=== PATIENT | male | born 1960 | race Asian ===

== ENCOUNTER 2018-03-07 13:25 | Inpatient (IN) | payer SELFPAY ==
[~2018-03-07] VITALS: Ht 172.7 cm; Wt 62.5 kg
[2018-03-07] VITALS (9 sets, daily range): BP systolic 102–128; BP diastolic 70–84; PULSE 67–80; RESP 16–28; TEMP 97.4–99; O2SAT 96–100
[2018-03-07] MEDS ORDERED: HEPARIN SODIUM - IV 10,000 UNITS/10 ML VIAL IV PUSH STA (13:32)
--- NOTE | 2018-03-07 13:39 | PD ---
HPI Chief Complaint: STEMI Alert Time Seen by Provider: 13:30 Travel History International Travel<30 days: No Contact w/Intl Traveler<30days: No Traveled to known affect area: No History of Present Illness HPI 57yo M with no PMH presents to the ED with c/o midsternal chest pain radiating to left arm that started about an hour ago. Associated with sob and diaphoresis. Pt has never had this before. Does not have top frame fitter. Denies any fever, cough, n/v, abdominal pain, focal weakness or numbness. Pt was given aspirin and sublingual nitro x3 by EVAC. [facility] Social History Tobacco Use: Yes Allergies-Medications (Allergen,Severity, Reaction): Coded Allergies: No Known Allergies (Verified Allergy, Unknown, 03/07/18) Review of Systems Except as stated in HPI: all other systems reviewed are Neg Physical Exam Narrative GENERAL: 57yo M in moderate distress. SKIN: Diaphoretic. HEAD: Atraumatic. Normocephalic. EYES: Pupils equal and round. No scleral icterus. No injection or drainage. ENT: No nasal bleeding or discharge. Mucous membranes pink and moist. NECK: Trachea midline. No JVD. CARDIOVASCULAR: Regular rate and rhythm. No murmur appreciated. RESPIRATORY: No accessory muscle use. Clear to auscultation. Breath sounds equal bilaterally. GASTROINTESTINAL: Abdomen soft, non-tender, nondistended. MUSCULOSKELETAL: No obvious deformities. No clubbing. No cyanosis. No edema. NEUROLOGICAL: Awake and alert. No obvious cranial nerve deficits. Motor grossly within normal limits. Normal speech. PSYCHIATRIC: Appropriate mood and affect; insight and judgment normal. Data Data Last Documented VS Vital Signs Date Time Temp Pulse Resp B/P (MAP) Pulse Ox O2 Delivery O2 Flow Rate FiO2 03/07/18 13:54 128/84 (99) 03/07/18 13:34 76 15 100 Nasal Cannula 2.00 03/07/18 13:29 97.4 Orders Orders Troponin I (03/07/18 13:32) Ckmb (Isoenzyme) Profile (03/07/18 13:32) Complete Blood Count With Diff (03/07/18 13:32) I-Stat Profile (03/07/18 13:32) I-Stat Creatinine (03/07/18 13:32) Magnesium (Mg) (03/07/18 13:32) Prothrombin Time / Inr (Pt) (03/07/18 13:32) Act Partial Throm Time (Ptt) (03/07/18 13:32) Chest, Single Ap (03/07/18 13:32) Heparin Inj (Heparin Inj) (03/07/18 13:32) Cardiac Catheterization (03/07/18 ) Admit Order (Ed Use Only) (03/07/18 14:10) Midazolam Inj (Versed Inj) (03/07/18 14:12) CKMB (03/07/18 13:30) CKMB% (03/07/18 13:30) Labs Laboratory Tests Test 03/07/18 13:30 White Blood Count 11.7 TH/MM3 Red Blood Count 4.58 MIL/MM3 Hemoglobin 14.1 GM/DL Bedside Hemoglobin 13.9 G/DL Hematocrit 41.6 % Bedside Hematocrit 41.0 % Mean Corpuscular Volume 90.8 FL Mean Corpuscular Hemoglobin 30.8 PG Mean Corpuscular Hemoglobin Concent 33.9 % Red Cell Distribution Width 13.3 % Platelet Count 238 TH/MM3 Mean Platelet Volume 9.3 FL Neutrophils (%) (Auto) 46.7 % Lymphocytes (%) (Auto) 41.7 % Monocytes (%) (Auto) 8.2 % Eosinophils (%) (Auto) 2.3 % Basophils (%) (Auto) 1.1 % Neutrophils # (Auto) 5.5 TH/MM3 Lymphocytes # (Auto) 4.9 TH/MM3 Monocytes # (Auto) 1.0 TH/MM3 Eosinophils # (Auto) 0.3 TH/MM3 Basophils # (Auto) 0.1 TH/MM3 CBC Comment DIFF FINAL Differential Comment Prothrombin Time 10.2 SEC Prothromb Time International Ratio 1.0 RATIO Activated Partial Thromboplast Time 21.1 SEC Bedside Sodium 138 MMOL/L Bedside Potassium 3.4 MMOL/L Bedside Chloride 103 MMOL/L Bedside Blood Urea Nitrogen 16 MG/DL Bedside Creatinine 0.8 MG/DL Bedside Glucose 210 MG/DL Magnesium Level 1.8 MG/DL Total Creatine Kinase 130 U/L Creatine Kinase MB 2.5 NG/ML Troponin I 0.04 NG/ML MDM Medical Decision Making Medical Screen Exam Complete: Yes Emergency Medical Condition: Yes Interpretation(s) EKG: NSR 75bpm. 2mm ST elevation V2-V4. Reciprocal ST depression II, III, aVF. Differential Diagnosis STEMI Narrative Course 57yo M with typical chest pain and EKG consistent with STEMI. Dr. White was on the list for STEMI but when we called him, he said to call Dr. Sibley. STEMI alert called and discussed Dr. Sibley at 13:30. Dr. Sibley came to evaluate the patient in the ED and pt has been emergently transferred to label coder when cath team arrived. Pt given heparin and was hemodynamically stable during transfer. Diagnosis Primary Impression: STEMI (ST elevation myocardial infarction) Qualified Codes: I21.02 - ST elevation (STEMI) myocardial infarction involving left anterior descending coronary artery Admitting Information Admitting Physician Requests: Admit Sera Ruffin DO Mar 07, 2018 13:39
[2018-03-07 13:51] LABS: AUTOMATED NEUTROPHIL # 5.5 TH/MM3 (1.8-7.7); BASOPHIL # 0.1 TH/MM3 (0-0.2); BASOPHIL % 1.1 % (0.0-2.0); EOSINOPHIL # 0.3 TH/MM3 (0-0.4); EOSINOPHIL % 2.3 % (0.0-4.0); HEMATOCRIT 41.6 % (39.0-51.0); HEMOGLOBIN 14.1 GM/DL (13.0-17.0); LYMPH % 41.7 % (9.0-44.0); LYMPHOCYTE # 4.9 TH/MM3 (1.0-4.8); MEAN CELL VOLUME 90.8 FL (80.0-100.0); MEAN CORPUSCULAR HEMOGLOBIN 30.8 PG (27.0-34.0); MEAN CORPUSCULAR HGB CONC 33.9 % (32.0-36.0); MEAN PLATELET VOLUME 9.3 FL (7.0-11.0); MONO % 8.2 % (0.0-8.0); NEUT % 46.7 % (16.0-70.0); PLATELET COUNT 238 TH/MM3 (150-450); RED BLOOD COUNT 4.58 MIL/MM3 (4.50-5.90); RED CELL DISTRIBUTION WIDTH 13.3 % (11.6-17.2); WHITE BLOOD COUNT 11.7 TH/MM3 (4.0-11.0)
--- NOTE | 2018-03-07 13:53 | RADRPT ---
EXAM DATE/TIME: 03/07/2018 13:36 [place] COMPARISON: No previous studies available for comparison. INDICATIONS : Stemi alert. Shortness of breath. MEDICAL HISTORY : Unobtainable. SURGICAL HISTORY : Unobtainable. ENCOUNTER: Initial ACUITY: 1 day PAIN SCORE: Non-responsive. LOCATION: chest FINDINGS: A single view of the chest demonstrates the lungs to be symmetrically aerated without evidence of mas s, infiltrate or effusion. The cardiomediastinal contours are unremarkable. Osseous structures are intact. CONCLUSION: No acute cardiopulmonary process. Yobany Dietz MD on March 07, 2018 at 13:50 Board Certified Radiologist. This report was verified electronically.
[2018-03-07 14:02] LABS: PROTHROMBIN TIME - PATIENT 10.2 SEC (9.8-11.6)
[2018-03-07] MEDS ORDERED: MIDAZOLAM HCL 2 MG/2 ML VIAL ONE ×2 (14:12→14:33)
[2018-03-07] MEDS ORDERED: LIDOCAINE HCL 1% PF 30 ML VIAL ONE ×2 (14:13→14:14)
[2018-03-07 14:14] LABS: MAGNESIUM 1.8 MG/DL (1.5-2.5)
[2018-03-07 14:17] LABS: TROPONIN I 0.04 NG/ML (0.02-0.05)
--- NOTE | 2018-03-07 14:20 | MH ---
cc: Otis Silbey MD DATE OF ADMISSION: 03/07/2018 ADMISSION DIAGNOSIS: Acute anterior ST elevation myocardial infarction. CHIEF COMPLAINT: Chest pain. HISTORY OF PRESENT ILLNESS: This is a 57-year-old smoker from [facility], who does not speak Welsh, who developed chest pain 1 hour prior to admission. His presenting EKG shows an acute anterior infarction. The patient denies any previous medical history, but last saw a doctor in 2000. He smokes a pack and a half of cigarettes a day. We do not have any history of hypertension or diabetes. He does not know of any family history of coronary artery disease. ALLERGIES: NONE. MEDICATIONS: He is taking an aspirin and another type of pill which I do not know the name of which may be similar to nitroglycerin. PAST MEDICAL HISTORY: Unremarkable. PAST SURGICAL HISTORY: Negative. SOCIAL HISTORY: He is a hotel worker. He does not drink. He is but his [place] the [place]. He smokes a pack and a half of cigarettes a day. REVIEW OF SYSTEMS: He has had no GI problems, no urinary problems, no bleeding problems. PHYSICAL EXAMINATION: GENERAL: Reveals a thin white male, in acute distress. VITAL SIGNS: Charted. HEENT: Unremarkable. NECK: Shows jugular venous distention. HEART: Shows an S1, S2, S3, a regular rhythm and a I/ systolic ejection murmur. ABDOMEN: Soft. EXTREMITIES: Reveal no peripheral edema. Pulses are intact. DIAGNOSTIC STUDIES: EKG showing an acute anterior STEMI. Labs that are available so far include a point of care glucose of 210. Point of care creatinine of 0.8, hematocrit pf 41.6. His chest x-ray is showing no acute disease. IMPRESSION: Acute anterior ST elevation myocardial infarction. PLAN: The patient is being prepped for emergency catheterization and PCI. I have obtained informed consent through a [place] cashier greeter nurse who is accompanying the patient to the scientific laboratory supervisor, who was available in the ER when I took his history. Otis Sibley MD VEW/KD , 02:05 PM , 02:19 PM
[2018-03-07] MEDS ORDERED: MORPHINE SULFATE 8 MG/ML INJ ONE (14:24)
[2018-03-07] MEDS ORDERED: TIROFIBAN INFUSION INJ 250 ML IV ONE (15:02)
[2018-03-07] MEDS ORDERED: TICAGRELOR 90 MG TAB PO ONE (15:11)
[2018-03-07] MEDS ORDERED: BIVALIRUDIN INJ 250 MG in SODIUM CHLORIDE 0.9% INJ 50 ML IV SCH (15:29)
[2018-03-07] MEDS ORDERED: SODIUM CHLOR 0.9% 1000 ML INJ 1,000 ML IV SCH (15:29)
[2018-03-07] MEDS ORDERED: SODIUM CHLORIDE 0.9% FLUSH 10 ML FLUSH IV FLUSH PRN (15:30)
[2018-03-07] MEDS ORDERED: ONDANSETRON HCL 4 MG/2 ML VIAL IV PUSH PRN (15:30)
[2018-03-07] MEDS ORDERED: BACITRACIN OINT 0.9 GM PKT TOP ONE (15:30)
[2018-03-07] MEDS ORDERED: oxyCODONE/ACETAMINOPHEN 5 MG/325 MG TAB PO PRN (15:30)
--- NOTE | 2018-03-07 15:35 | CATHPROC ---
[facility] HIS Report Study Information Study Number Admission Scheduled Start Study Start [id number] Mar 07 2018 1:25PM 03/07/2018 Mar 07 2018 2:02PM [place] Service Cardiac Catheterization Admit Source Facility Department Emergency department [facility] - Aircraft Powerplant Repairer Physician and Clinical Staff Initial Otis De Jesus Backrest AssemblerSamara Hernandez,RN Yazan Recinos RN, [place] RecordMary Pires,RT(R) Scrub Agustin Robins,RT(R) Procedures Performed Procedure Location (Site) Vessel Name Angiogram LV LV Ventricle Coronary Angiograms LCA Left Coronary Coronary Angiograms RCA Right Coronary Drug Eluting Inflatio LAD Prox Left Coronary L Heart Cath PTCA LAD Prox Left Coronary Wire insertion Fem Art (right) Femoral Art Equipment Time Us Customs And Border Officer Description Size Mfg Part Number Used/Scraped WIRE, BALANCE MIDDLEWEIGHT [id number] 14:24 [employer] 190CM Used 190CM *[id number] WIRE, BALANCE MIDDLEWEIGHT [id number] 14:28 [employer] 190CM Used 190CM *[id number] TRANSDUCER, TRUWAVE [id number] 14:15 ARMENDARIZ AGUILAR * Used W/STOCKCOCK *[id number] *[id number] *[id number] PIGTAIL ANG. 145 INFINITI [id number] CATHETER *[id number] *[id number] 15:14 DAIG/ST. SADIE MEDICAL ANGIOSEAL, FR6 VIP FR 6 Used *[id number] 14:15 [employer] INDUSTRIES PACK, CCL CUSTOM * Used *[id number] 14:15 [employer] PACER PEN, SKIN DUAL W/ RULER * Used *[id number] 14:23 MED[employer] BALLOON, 3.0 X 15MM EUPHORA 15MM Used *[id number] 14:59 [employer] STENT, 3.5 12MM BLAKE 3.5 12MM Used *[id number] 14:57 [employer] STENT, 3.5 22MM BLAKE 3.5 22MM [id number] Used [id number] 14:44 [employer] MEDICAL 30 JONNA INDEFLATOR Used *[id number] 14:15 [employer] MEDICAL SHEATH, FR6.5 PRELUDE 11CM FR 6.5 038ACT Used *[id number] 14:15 [employer] WIRE, 3MMJ .035 180CM 180CM Used *[id number] 14:15 NAMIC MANIFOLD, 4 PORT * Used *[id number] 14:50 NYCOMED OMNIPAQUE, 350 MG, 150ML 150ML [id number] Used 14:50 NYCOMED OMNIPAQUE, 350 MG, 150ML 150ML [id number] Used 14:48 NYCOMED OMNIPAQUE, 350 MG, 50ML 50ML [id number] Used [id number] 14:15 [employer] BLANKET,WARM AIR CCL * Used *[id number] Scrap: Physician 14:52 [employer] STENT, 3.5 18MM BLAKE 3.5 18MM *[id number] choice Equipment Model, Serial, Lot Number and Expiration Data Description Model Number Serial Number Lot Number Expiration Date ANGIOALEX GARCIA VIP [id number] 09-16-2018 STENT, 3.5 12MM BLAKE [id number] 09-08-2019 STENT, 3.5 22MM BLAKE [id number] 07-03-2019 History: Allergies Allergy Reaction No Known Allergies History: Symptoms/Diagnosis Selection Items Chest pain SOB History: Stress Tests Stress or Imaging Studies Performed No Labs Hgb (g/dl) Hct (%) WBC (l/cumm) Platelets (thousands) 11.60-17.00 35.00-51.00 4.00-11.00 150.00-450.00 14.1 41.6 11.7 238 Glucose (mg/dl) BUN (mg/dl) Creatinine (mg/dl) BUN:Creatinine (1:x) 74.00-106.00 7.00-18.00 0.50-1.30 10.00-20.00 210 16 0.8 20 Na (meq/l) K (meq/l) 136.00-145.00 3.50-5.10 138 3.4 INR (PTT:PT) 0.90-1.10 1 Troponin I (ng/ml) CPK (u/l) 0.02-0.05 26.00-308.00 0.04 130 Medication Medication Total Dose (Bolus/Oral) Medication Total Dosage/Unit 1% XYLOCAINE 20 mL ANGIOMAX BOLUS 9 mL BRILINTA 180 mg MORPHINE 8 mg NTG (IC) 100 mcg VERSED 5 mg Medications (Bolus/Oral) Medication Time Given Dosage/Unit Administered By Reason 1% XYLOCAINE 03/07/2018 2:16:31 PM 20 mL Otis Sibley 20 mL 1% XYLOCAINE given in lab by Otis Sibley in Right Groin via Subcutaneous. VERSED 03/07/2018 2:17:44 PM 1 mg Jorje TOSCANO, [place] 1 mg VERSED given in lab by Hamlet Recinos RN in Right Antecubital via Peripheral IV. Ordered by Otis Sibley. ANGIOMAX BOLUS 03/07/2018 2:21:39 PM 9 mL Samara Mahan 9 mL ANGIOMAX BOLUS given in lab by Samara Mahan RN in Right Antecubital via Peripheral IV. Order ed by Otis Sibley. VERSED 03/07/2018 2:23:30 PM 1 mg Jorje TOSCANO, [place] 1 mg VERSED given in lab by Hamlet Recinos RN in Right Antecubital via Peripheral IV. Ordered by Otis Sibley. MORPHINE 03/07/2018 2:25:04 PM 4 mg Hamlet Recinos RN 4 mg MORPHINE given in lab by Hamlet Recinos RN in Right Antecubital via Peripheral IV. Ordered by Otis Moyer. VERSED 03/07/2018 2:34:36 PM 1 mg Samara Mahan 1 mg VERSED given in lab by Samara Mahan RN in Right Antecubital via Peripheral IV. Ordered by Otis Freeman. VERSED 03/07/2018 2:35:31 PM 1 mg Samara Mahan 1 mg VERSED given in lab by Samara Mahan RN in Right Antecubital via Peripheral IV. Ordered by Otis Freeman. MORPHINE 03/07/2018 2:47:09 PM 4 mg Hamlet Recinos RN 4 mg MORPHINE given in lab by Hamlet Recinos RN in Right Antecubital via Peripheral IV. Ordered by Otis Moyer. VERSED 03/07/2018 2:48:26 PM 1 mg Hamlet Recinos RN 1 mg VERSED given in lab by Ham[place] Recinos RN in Right Antecubital via Peripheral IV. Ordered by Otis Sibley. NTG (IC) 03/07/2018 3:04:49 PM 100 mcg Otis Sibley 100 mcg NTG (IC) given in lab by Otis Sibley in Right Groin via Intra-coronary. Ordered by Otis Sibley. BRILINTA 03/07/2018 3:25:34 PM 180 mg Samara Mahan 180 mg BRILINTA given in lab by Samara Mahan, RN via Oral. Ordered by Otis Sibley. Medication (Drip) Medication Time Given Dosage/Unit Concentration/Unit Diluent (ml) Solution ANGIOMAX DRIP 03/07/2018 2:22:31 PM 1.75 mg/kg/hr 250 mg 50 NaCl .9 1.75 mg/kg/hr ANGIOMAX DRIP given in lab by Samara Mahan, RN in Right Antecubital via Peripheral I V. Pump/Drip Flow = 21 ml/hr using NaCl .9 with a concentration of 250 mg in 50 ml. Ordered by Otis Sibley. IV Solutions 03/07/2018 2:03:42 PM 50 mL (IV) NaCl .9 Patient arrived on IV Solutions in Right Antecubital via Peripheral IV. Pump/Drip Flow using NaCl .9. Initial Case Assessment Cardiovascular HR Rhythm NIBP Chest Pain 90 STEMI 115/87 10 Edema Present Skin color Skin None Normal Warm Dry Circulatory - Right Pulses Dorsalis Pedis Femoral 3 3 Scale (0,1,2,3,4,d) Circulatory - Left Pulses Dorsalis Pedis Femoral 3 3 Scale (0,1,2,3,4,d) Neurological State Oriented to time-place- Alert Moves all extremities person Respiration - General Respiration Rate SpO2 (%) O2 (lpm) (B/min) 10 100 2 Chronological Log Time Study Chronological Log 14:02:41 3 cath team members and Dr Sibley here. ED called by Dr Sibley to bring patient up. 14:03:24 Patient arrived via Bed. 14:03:25 Patient Name, D.O.B, / Armband Verified By R.N. 14:03:25 Consent signed by the physician and the patient and verified by the Aircraft Powerplant Repairer staff. 14:03:26 Pre-op and post- op instructions given; patient acknowledges understanding of instructions. Verbal Stimulation=~VERBAL~ Physical Stimulation=~PHYSICAL~ Airway=~AIRWAY~ Respiration=~RESPIR ATION~ 14:03:28 TOTAL=~TOTAL~. (0=absent, 1=limited, 2=present) 14:03:37 Patient has been NPO for Less than 6Hrs. 14:03:38 Skin Breakdown- none 14:03:39 Patient Warmer Placed on the Table. 14:03:39 Wailda Prominences Protected 14:03:41 A # 20 IV was noted in the Hand (right). Grade = 0 14:03:41 A # 20 IV was noted in the Antecubital (right). Grade = 0 14:03:42 Patient arrived on IV Solutions in Right Antecubital via Peripheral IV. Pump/Drip Flow usin g NaCl .9. 14:03:43 History and physical on the chart or being dictated. Assessment: Initial Case, HR=90 BPM, Rhythm=STEMI, EWOJ=704/87 mmhg, Chest Pain=10, Edema=None, Color=Normal, Skin = Warm, Dry Right Pulses: Gavin Ped=3, Femoral=3 14:03:44 Left Pulses: Gavin Ped=3, Femoral=3 Neurological: State=Alert, Ox3, [place] Respiration: Resp=10 B/min, CdU8=644 %, O2=2 lpm Vitals capture started with the following parameters, Patient=Adult, Interval=5 min, Initial Pr mhklbs=397 mmHg, 14:09:18 Deflation Rate=5 mmHg, Cuff placed on Right Ankle 14:09:36 Reference ECG taken 14:09:51 HR=90 bpm, FIFU=773/87 mmhg, BuQ0=112.0 %, Resp=15 B/min 14:14:48 HR=17 bpm, UVIP=124/88 mmhg, BhJ6=074.0 %, Resp=16 B/min 14:16:28 Case Start 14:16:31 20 mL 1% XYLOCAINE given in lab by Otis Sibley in Right Groin via Subcutaneous. 14:16:37 Pressure channel 1 zeroed. 14:17:20 Nurse from ED translating Nicarag[place] for patient 14:17:44 1 mg VERSED given in lab by Hamlet Recinos RN in Right Antecubital via Peripheral IV. Ordered by Otis Sibley. 14:18:45 Access site was Right Femoral Artery. 14:18:52 A SHEATH, FR6.5 PRELUDE 11CM FR 6.5 was advanced into the Fem Art (right) using the Percuta neous technique. A JL 4.0 INFINITI CATHETER FR 6 was advanced over a wire. OMNIPAQUE, 350 MG, 150ML 150ML was us ed for 14:18:58 injections. 14:19:53 HR=93 bpm, ZICG=806/86 mmhg, PaR3=133.0 %, Resp=19 B/min 14:20:09 The LCA was injected and visualized at various angles. OMNIPAQUE, 350 MG, 150ML 150ML used . 14:21:02 Catheter was removed 9 mL ANGIOMAX BOLUS given in lab by Samara Mahan RN in Right Antecubital via Peripheral IV. Ordered by Toñito 14:21:39 Otis. A XBLAD 3.5 GUIDE CATHETER FR 6 was advanced over a wire. OMNIPAQUE, 350 MG, 150ML 150ML was us ed for 14:21:49 injections. 1.75 mg/kg/hr ANGIOMAX DRIP given in lab by Samara Mahan RN in Right Antecubital via [facility] eral IV. Pump/Drip 14:22:31 Flow = 21 ml/hr using NaCl .9 with a concentration of 250 mg in 50 ml. Ordered by Otis Sibley . 14:23:23 A WIRE, BALANCE MIDDLEWEIGHT 190CM 190CM was inserted via Fem Art (right). 14:23:30 1 mg VERSED given in lab by Hamlet Recinos RN in Right Antecubital via Peripheral IV. Ordered by Otis Sibley. 14:24:54 HR=92 bpm, DEBZ=761/89 mmhg, IgQ1=326.0 %, Resp=18 B/min 14:25:04 4 mg MORPHINE given in lab by Hamlet Recinos RN in Right Antecubital via Peripheral IV. Order ed by Otis Sibley. 14:25:20 Wire removed for reshaping 14:25:40 A WIRE, BALANCE MIDDLEWEIGHT 190CM 190CM was inserted via Fem Art (right). Recorded Pressure: Ao, HR=96, Condition=Condition 1 14:27:46 (Aorta) Ao 126/78/101 14:29:53 HR=91 bpm, KFVN=334/97 mmhg, SrE4=932.0 %, Resp=10 B/min 14:33:36 A WIRE, BALANCE MIDDLEWEIGHT 190CM 190CM was inserted via Fem Art (right). 2nd BMW 14:34:36 1 mg VERSED given in lab by Samara Mahan RN in Right Antecubital via Peripheral IV. Ord ered by Otis Sibley. 14:34:54 HR=91 bpm, VISZ=727/93 mmhg, BmV7=160 %, Resp=17 B/min 14:35:31 1 mg VERSED given in lab by Samara Mahan RN in Right Antecubital via Peripheral IV. Ord ered by Otis Sibley. 14:39:55 HR=90 bpm, OXOJ=110/93 mmhg, DoA4=556.0 %, Resp=9 B/min 14:40:32 1 BMW Wire removed 14:42:07 Interventional wire has crossed the lesion A BALLOON, 3.0 X 15MM EUPHORA 15MM was inserted over WIRE, BALANCE MIDDLEWEIGHT 190CM 190CM via the 14:42:19 Fem Art (right). A BALLOON, 3.0 X 15MM EUPHORA 15MM over a WIRE, BALANCE MIDDLEWEIGHT 190CM 190CM in the LAD Pro x was 14:43:29 inflated using a 30 JONNA INDEFLATOR at 6 jonna for 20 sec. 14:44:54 HR=80 bpm, EEVF=921/93 mmhg, TcW2=324.0 %, Resp=18 B/min 14:45:42 Balloon Removed. 14:47:09 4 mg MORPHINE given in lab by Hamlet Recinos RN in Right Antecubital via Peripheral IV. Order ed by Otis Sibley. 14:48:26 1 mg VERSED given in lab by Hamlet Recinos RN in Right Antecubital via Peripheral IV. Ordered by Otis Sibley. A BALLOON, 3.0 X 15MM EUPHORA 15MM was inserted over WIRE, BALANCE MIDDLEWEIGHT 190CM 190CM via the 14:49:41 Fem Art (right). 14:49:53 HR=91 bpm, PTEK=907/87 mmhg, Resp=9 B/min A BALLOON, 3.0 X 15MM EUPHORA 15MM over a WIRE, BALANCE MIDDLEWEIGHT 190CM 190CM in the LAD Pro x was 14:51:21 inflated using a 30 JONNA INDEFLATOR at 8 jonna for 17 sec. 14:52:22 Balloon Removed. 14:54:56 HR=91 bpm, HHRR=083/87 mmhg, Resp=19 B/min A implantable was advanced through a XBLAD 3.5 GUIDE CATHETER FR 6 over a WIRE, BALANCE MIDDLEW EIGHT 14:55:26 190CM 190CM. 14:56:05 A implantable was deployed using a 30 JONNA INDEFLATOR at 10 atmospheres for 20 seconds in th e LAD Prox. 14:58:16 Delivery device removed A STENT, 3.5 12MM BLAKE 3.5 12MM was advanced through a XBLAD 3.5 GUIDE CATHETER FR 6 over a WIR E, 14:59:21 BALANCE MIDDLEWEIGHT 190CM 190CM. 14:59:58 HR=89 bpm, MKVK=182/77 mmhg, SpO2=98.0 %, Resp=18 B/min A STENT, 3.5 12MM BLAKE 3.5 12MM was deployed using a 30 JONNA INDEFLATOR at 8 atmospheres for 23 seconds in 14:59:59 the LAD Prox. 15:02:17 Delivery device removed 15:04:49 100 mcg NTG (IC) given in lab by Otis Sibley in Right Groin via Intra-coronary. Ordered b y Otis Sibley. 15:04:57 HR=90 bpm, GQLX=390/78 mmhg, SpO2=98.0 %, Resp=21 B/min 15:06:20 Wire removed 15:06:32 Catheter was removed A 3DRC INFINITI CATHETER FR 6 was advanced over a wire. OMNIPAQUE, 350 MG, 150ML 150ML was used for 15:07:00 injections. 15:07:10 The RCA was injected and visualized at various angles. OMNIPAQUE, 350 MG, 150ML 150ML used . 15:07:40 Catheter was removed A PIGTAIL ANG. 145 INFINITI CATHETER FR 6 was advanced over a wire. OMNIPAQUE, 350 MG, 150ML 15 0ML was 15:09:34 used for injections. 15:09:58 HR=87 bpm, WBRC=930/70 mmhg, SpO2=97 %, Resp=21 B/min Recorded Pressure: LV, HR=62, Condition=Condition 1 15:10:25 (Left Ventricle) LV 99/6/29 15:11:49 The LV was injected at 10 cc/sec for a total of 35. OMNIPAQUE, 350 MG, 50ML 50ML used. Recorded Pressure: LV, Ao, HR=89, Condition=Condition 1 15:12:13 (Left Ventricle) LV 102/-8/30, (Aorta) Ao 97/59/76 15:12:32 Catheter was removed 15:13:34 An injection in the Fem Art (right) was made through the SHEATH, FR6.5 PRELUDE 11CM FR 6.5. 15:13:54 ANGIOSEAL, FR6 VIP FR 6 placement in the Fem Art (right) 15:14:57 HR=85 bpm, NIBP=95/69 mmhg, SpO2=98 %, Resp=23 B/min 15:15:00 Case End 15:15:34 Sterile dressing applied to site 15:15:35 No case complications noted. 15:15:39 Cine recording checked. 15:15:42 Floor notified of successful intervention. 15:15:52 Implantable Device card placed in patient's chart. 15:15:57 Bedside Report will be given. 15:16:01 A Left Heart Cath was performed. 15:19:54 HR=20 bpm, EBWJ=850/77 mmhg, SpO2=98.0 %, Resp=17 B/min 15:23:59 Vitals capture stopped. 15:25:34 180 mg BRILINTA given in lab by Samara Mahan, DORCAS via Oral. Ordered by Otis Sibley. 15:28:58 Patient moved to [facility] End Study - Contrast Media Used In Study Contrast Total Opened (mL) Total Used (mL) Total Wasted (mL) Omnipaque 250 250 0 End Study - Maximum Contrast Load Max Contrast Load (mL) 375.0 End Study - Radiation Exposure Fluoro Time (minutes) 24.3 End Study - Patient Disposition Complications Transferred To Interventional Outcome No Telemetry Bed successful
[2018-03-07] MEDS ORDERED: PILL SPLITTER OTHER PRN (15:45)
--- NOTE | 2018-03-07 15:53 | MA ---
cc: Otis Sibley MD DATE: 03/07/2018 PROCEDURES PERFORMED: Left heart catheterization, left ventriculography, coronary angiography, balloon angioplasty and stenting of the proximal left anterior descending coronary artery. DESCRIPTION OF PROCEDURE: The patient was brought to the cardiac catheterization lab under emergency conditions with an acute anterior STEMI. Using 1% lidocaine for local anesthesia, a 6.5-Nepali sheath was inserted in the right femoral artery. Next, a left 4 Griselda catheter was used to image the left coronary artery and the proximal LAD was seen to be occluded. I used an XB 3.5 LAD guiding catheter to engage the left main. The LAD came off it at an acute angle from the left main. Intravenous Angiomax was administered. I had difficulty getting a wire to bend enough to get into the LAD. Once I got the wire into the LAD and across the occlusion, I had difficulty getting the wire out into the LAD proper. I was not sure exactly where the distal wire was. I spent considerable time trying to get the wire into the distal LAD unsuccessfully. I finally decided to go ahead and balloon the proximal LAD to try to get some flow down the LAD proper so that I could steer the wire properly. I ballooned the proximal LAD gently with a 3.0 balloon. I could now see the vessel making a sharp turn after the stenosis. With some difficulty, I was able to get the wire into the LAD proper and down to the apex. I then dilated the proximal LAD again with a 3.0 balloon. I then stented using a 3.5 x 22 mm Adrian stent that was deployed at 8 atmospheres. There was disease distal to my stent, so I put a second stent in overlapping distally which was a 3.5 x 12 mm Adrian stent that was also deployed at 8 atmospheres. The balloon was then withdrawn to the overlap portion and inflated at 12 and then back very proximal portion and that was inflated at 14. Now the dire extent of the segment of the LAD looked widely patent. Some nitroglycerin was given from some distal spasm. There was [place] of [place] 3 flow. The patient was extremely agitated during the case, but once flow was reestablished, he settled down nicely. EKG shows marked improvement. Angiography was then obtained of the right coronary artery with a 3 DRC and then LV pressure was measured with an angled pigtail catheter, followed by pullback. I then did an injection through the sheath and did an uncomplicated Angio-Seal closure with good hemostasis. There were no complications. FINDINGS: 1. Hemodynamics: Left ventricular pressure is 102/0 with an end diastolic pressure of 30. Aortic pressure is 97/59 with a mean of 76. 2. Left ventriculography: Left ventriculography shows extensive anterolateral apical and inferoapical akinesis. EF is about 30%. There is no mitral regurgitation. There is no coronary artery calcification seen. 3. Coronary angiography: The left main coronary artery is short and normal appearing. It trifurcates into the LAD, ramus intermediate branch and dominant circumflex. The ramus and dominant circumflex appear normal. The right coronary artery is totally occluded proximally with thrombus. The right coronary artery is nondominant and normal. 4. Results of intervention: Following stenting of the proximal LAD, a 0% residual stenosis had been achieved with [place] of [place] grade 3 flow. RECOMMENDATIONS: The patient will be maintained on aspirin and Brilinta. We will introduce an GARY inhibitor and beta aleksander as hemodynamics permit. MD VENUS Pelayo/AKBAR , 03:29 PM , 03:52 PM
[2018-03-07] MEDS: SODIUM CHLORIDE 0.9% FLUSH 10 ML FLUSH IV FLUSH SCH (20:56)
[2018-03-07] MEDS: METOPROLOL TARTRATE 25 MG TAB PO SCH (20:56)
[2018-03-08] VITALS (24 sets, daily range): BP systolic 87–121; BP diastolic 59–83; PULSE 64–84; RESP 16–20; TEMP 97.4–99.1; O2SAT 97
[2018-03-08 04:34] LABS: AUTOMATED NEUTROPHIL # 11.7 TH/MM3 (1.8-7.7); BASOPHIL # 0.1 TH/MM3 (0-0.2); BASOPHIL % 0.7 % (0.0-2.0); EOSINOPHIL % 0.2 % (0.0-4.0); HEMATOCRIT 37.2 % (39.0-51.0); HEMOGLOBIN 12.7 GM/DL (13.0-17.0); LYMPH % 11.8 % (9.0-44.0); LYMPHOCYTE # 1.7 TH/MM3 (1.0-4.8); MEAN CORPUSCULAR HEMOGLOBIN 31.1 PG (27.0-34.0); MEAN CORPUSCULAR HGB CONC 34.2 % (32.0-36.0); MEAN PLATELET VOLUME 9.1 FL (7.0-11.0); MONO % 5.3 % (0.0-8.0); MONOCYTE # 0.8 TH/MM3 (0-0.9); PLATELET COUNT 185 TH/MM3 (150-450); RED BLOOD COUNT 4.09 MIL/MM3 (4.50-5.90); RED CELL DISTRIBUTION WIDTH 13.2 % (11.6-17.2); WHITE BLOOD COUNT 14.3 TH/MM3 (4.0-11.0)
[2018-03-08 04:58] LABS: ALBUMIN 3.4 GM/DL (3.4-5.0); AST (GOT) 532 U/L (15-37); BICARBONATE 21.1 MEQ/L (21.0-32.0); BLOOD UREA NITROGEN 13 MG/DL (7-18); CALCIUM 8.1 MG/DL (8.5-10.1); CHLORIDE 106 MEQ/L (98-107); CHOLESTEROL 225 MG/DL (120-200); CREATININE 0.77 MG/DL (0.60-1.30); GLOMERULAR FILTRATION RATE 105 ML/MIN (>89); GLUCOSE,RANDOM 166 MG/DL (74-106); SODIUM (NA) 137 MEQ/L (136-145)
[2018-03-08 05:03] LABS: ALKALINE PHOSPHATASE 89 U/L (45-117); ALT (GPT) 88 U/L (12-78); CHOLESTEROL/ HDL RATIO 4.92 RATIO; HDL CHOLESTEROL 45.7 MG/DL (40.0-60.0); LDL CHOLESTEROL 162 MG/DL (0-99); TOTAL BILIRUBIN ADULT 0.9 MG/DL (0.2-1.0); TOTAL PROTEIN 6.8 GM/DL (6.4-8.2); TRIGLYCERIDES 88 MG/DL (42-150)
[2018-03-08] MEDS: METOPROLOL TARTRATE 25 MG TAB PO SCH ×2 (08:52→20:48)
[2018-03-08] MEDS: LISINOPRIL 5 MG TAB PO SCH (08:52)
[2018-03-08] MEDS: TICAGRELOR 90 MG TAB PO SCH ×2 (08:52→20:43)
[2018-03-08] MEDS: ASPIRIN 81 MG CHEW TAB PO SCH (08:53)
[2018-03-08] MEDS: SODIUM CHLORIDE 0.9% FLUSH 10 ML FLUSH IV FLUSH SCH ×2 (08:53→20:48)
--- NOTE | 2018-03-08 09:39 | HHI.PR ---
Subjective Remarks In nad. No chest pain overnight he feels better. Blood pressure was noted into the lower side. No diaphoresis, palpitations, nausea. Objective Vitals Vital Signs Date Time Temp Pulse Resp B/P (MAP) Pulse Ox O2 Delivery O2 Flow Rate FiO2 03/08/18 07:55 97.4 76 20 98/64 (75) 97 03/08/18 06:07 73 03/08/18 05:08 76 03/08/18 04:15 69 03/08/18 03:35 66 03/08/18 03:35 98.0 66 16 121/83 (96) 97 03/08/18 02:06 64 03/08/18 01:20 74 03/08/18 00:11 74 03/07/18 23:39 97.6 74 16 108/77 (87) 98 03/07/18 23:39 70 03/07/18 22:37 78 03/07/18 21:15 80 03/07/18 20:00 74 03/07/18 19:30 67 03/07/18 19:25 99.0 71 17 105/74 (84) 96 03/07/18 15:00 75 03/07/18 15:00 98.7 75 16 102/70 (81) 98 03/07/18 13:54 128/84 (99) 03/07/18 13:34 76 15 100 Nasal Cannula 2.00 03/07/18 13:29 97.4 77 28 124/80 (95) 100 I/O 03/07/18 03/07/18 03/07/18 03/08/18 03/08/18 03/08/18 07:00 15:00 23:00 07:00 15:00 23:00 Intake Total 198 ml 720 ml Output Total 0 ml 750 ml Balance 198 ml -30 ml Intake Oral 120 ml 720 ml IV Total 78 ml Output Urine Total 0 ml 750 ml # Bowel Movements 0 Result Diagram: 03/08/18 0423 03/08/18 042 Imaging Last Impressions Chest X-Ray 03/07/18 1072 Signed Impressions: Service Date/Time: Wednesday, March 07, 2018 13:36 - CONCLUSION: No acute cardiopulmonary process. Yobany Dietz MD Objective Remarks GENERAL: In nad. SKIN: Warm and dry. HEAD: Atraumatic. Normocephalic. EYES: Pupils equal and round. No scleral icterus. No injection or drainage. ENT: No nasal bleeding or discharge. Mucous membranes pink and moist. NECK: Trachea midline. No JVD. CARDIOVASCULAR: Regular rate and rhythm. RESPIRATORY: No accessory muscle use. Clear to auscultation. Breath sounds equal bilaterally. GASTROINTESTINAL: Abdomen soft, non-tender, nondistended. Hepatic and splenic margins not palpable. MUSCULOSKELETAL: Extremities without clubbing, cyanosis, or edema. No obvious deformities. NEUROLOGICAL: Awake and alert. No obvious cranial nerve deficits. Motor grossly within normal limits. Five out of 5 muscle strength in the arms and legs. Normal speech. PSYCHIATRIC: Appropriate mood and affect; insight and judgment normal. A/P Assessment and Plan STEMI s/p cardiac cath by Dr Sibley cardio on 03/07/18 stenting of the proximal LAD, EF 30%. Continue aspirin and Brilinta Continue atorvastatin. Lipid panel reviewed. Add GARY inhibitor and beta aleksander when BP permits . BP into a lower side at this time. Monitor closely Hyperglycemia. Check A1c. Restart home meds as appropriate DC when cleared by cardiology Eden Eid MD Mar 08, 2018 09:39
--- NOTE | 2018-03-08 11:52 | PD.CARD.PN ---
Subjective Subjective Remarks no angina. no complaints Objective Medications Current Medications Medications (Trade) Dose Ordered Sig/Wojciech Route Start Time Stop Time Status Last Admin (NS Flush) 2 ml UNSCH PRN IV FLUSH 03/07/18 15:30 (NS Flush) 2 ml BID IV FLUSH 03/07/18 21:00 03/08/18 08:53 (Tylenol) 325 mg Q4H PRN PO 03/07/18 15:30 (Percocet 5-325 Mg) 1 tab Q4H PRN PO 03/07/18 15:30 (Aspirin Chew) 81 mg DAILY PO 03/08/18 09:00 03/08/18 08:53 (Brilinta) 90 mg BID PO 03/08/18 09:00 03/08/18 08:52 (Zofran Inj) 4 mg Q4H PRN IV PUSH 03/07/18 15:30 (Lopressor) 12.5 mg BID PO 03/07/18 21:00 03/08/18 08:52 (Prinivil) 2.5 mg DAILY PO 03/08/18 09:00 03/08/18 08:52 (Lipitor) 40 mg DAILY PO 03/08/18 09:00 (Pill Splitter) 1 ea UNSCH PRN OTHER 03/07/18 15:45 Vital Signs / I&O Vital Signs Date Time Temp Pulse Resp B/P (MAP) Pulse Ox O2 Delivery O2 Flow Rate FiO2 03/08/18 10:00 68 03/08/18 09:00 68 03/08/18 08:00 70 03/08/18 07:55 97.4 76 20 98/64 (75) 97 03/08/18 06:07 73 03/08/18 05:08 76 03/08/18 04:15 69 03/08/18 03:35 66 03/08/18 03:35 98.0 66 16 121/83 (96) 97 03/08/18 02:06 64 03/08/18 01:20 74 03/08/18 00:11 74 03/07/18 23:39 97.6 74 16 108/77 (87) 98 03/07/18 23:39 70 03/07/18 22:37 78 03/07/18 21:15 80 03/07/18 20:00 74 03/07/18 19:30 67 03/07/18 19:25 99.0 71 17 105/74 (84) 96 03/07/18 15:00 75 03/07/18 15:00 98.7 75 16 102/70 (81) 98 03/07/18 13:54 128/84 (99) 03/07/18 13:34 76 15 100 Nasal Cannula 2.00 03/07/18 13:29 97.4 77 28 124/80 (95) 100 I/O 03/07/18 03/07/18 03/07/18 03/08/18 03/08/18 03/08/18 07:00 15:00 23:00 07:00 15:00 23:00 Intake Total 198 ml 720 ml Output Total 0 ml 750 ml Balance 198 ml -30 ml Intake Oral 120 ml 720 ml IV Total 78 ml Output Urine Total 0 ml 750 ml # Bowel Movements 0 Physical Exam GENERAL: Thin white mail.No acute distress. HEENT: Jugular venous pressure is normal. CHEST: Lungs clear to auscultation bilaterally. Unlabored respiratory effort. CARDIAC: Regular rate and rhythm without S3, S4, or murmur. ABDOMEN: Soft, nontender, no hepatosplenomegaly. Bowel sounds present. EXTREMITIES: No clubbing, cyanosis, or edema. Right groin no hematoma. Laboratory Laboratory Tests Test 03/07/18 13:30 03/08/18 04:23 White Blood Count 11.7 TH/MM3 14.3 TH/MM3 Red Blood Count 4.58 MIL/MM3 4.09 MIL/MM3 Hemoglobin 14.1 GM/DL 12.7 GM/DL Bedside Hemoglobin 13.9 G/DL Hematocrit 41.6 % 37.2 % Bedside Hematocrit 41.0 % Mean Corpuscular Volume 90.8 FL 91.0 FL Mean Corpuscular Hemoglobin 30.8 PG 31.1 PG Mean Corpuscular Hemoglobin Concent 33.9 % 34.2 % Red Cell Distribution Width 13.3 % 13.2 % Platelet Count 238 TH/MM3 185 TH/MM3 Mean Platelet Volume 9.3 FL 9.1 FL Neutrophils (%) (Auto) 46.7 % 82.0 % Lymphocytes (%) (Auto) 41.7 % 11.8 % Monocytes (%) (Auto) 8.2 % 5.3 % Eosinophils (%) (Auto) 2.3 % 0.2 % Basophils (%) (Auto) 1.1 % 0.7 % Neutrophils # (Auto) 5.5 TH/MM3 11.7 TH/MM3 Lymphocytes # (Auto) 4.9 TH/MM3 1.7 TH/MM3 Monocytes # (Auto) 1.0 TH/MM3 0.8 TH/MM3 Eosinophils # (Auto) 0.3 TH/MM3 0.0 TH/MM3 Basophils # (Auto) 0.1 TH/MM3 0.1 TH/MM3 CBC Comment DIFF FINAL DIFF FINAL Differential Comment Prothrombin Time 10.2 SEC Prothromb Time International Ratio 1.0 RATIO Activated Partial Thromboplast Time 21.1 SEC Bedside Sodium 138 MMOL/L Bedside Potassium 3.4 MMOL/L Bedside Chloride 103 MMOL/L Bedside Blood Urea Nitrogen 16 MG/DL Bedside Creatinine 0.8 MG/DL Bedside Glucose 210 MG/DL Magnesium Level 1.8 MG/DL Total Creatine Kinase 130 U/L Creatine Kinase MB 2.5 NG/ML Troponin I 0.04 NG/ML Blood Urea Nitrogen 13 MG/DL Creatinine 0.77 MG/DL Random Glucose 166 MG/DL Total Protein 6.8 GM/DL Albumin 3.4 GM/DL Calcium Level 8.1 MG/DL Alkaline Phosphatase 89 U/L Aspartate Amino Transf (AST/SGOT) 532 U/L Alanine Aminotransferase (ALT/SGPT) 88 U/L Total Bilirubin 0.9 MG/DL Sodium Level 137 MEQ/L Potassium Level 4.0 MEQ/L Chloride Level 106 MEQ/L Carbon Dioxide Level 21.1 MEQ/L Anion Gap 10 MEQ/L Estimat Glomerular Filtration Rate 105 ML/MIN Triglycerides Level 88 MG/DL Cholesterol Level 225 MG/DL LDL Cholesterol 162 MG/DL HDL Cholesterol 45.7 MG/DL Cholesterol/HDL Ratio 4.92 RATIO Imaging Last 24 hours Impressions Chest X-Ray 03/07/18 1332 Signed Impressions: Service Date/Time: Wednesday, March 07, 2018 13:36 - CONCLUSION: No acute cardiopulmonary process. Yobany Dietz MD Assessment and Plan Problem List: (1) Stented coronary artery ICD Codes: Z95.5 - Presence of coronary angioplasty implant and graft Plan: Cont. ASA and Brilinta (2) ST elevation myocardial infarction (STEMI) of anterior wall ICD Codes: I21.09 - ST elevation (STEMI) myocardial infarction involving other coronary artery of anterior wall (3) Hyperglycemia ICD Codes: R73.9 - Hyperglycemia, unspecified Plan: ? he is diabetic (4) Coronary artery disease ICD Codes: I25.10 - Atherosclerotic heart disease of [place] coronary artery without angina pectoris (5) Left ventricular systolic dysfunction ICD Codes: I51.9 - Heart disease, unspecified Otis Sibley MD Mar 08, 2018 11:52
[2018-03-08] MEDS: ATORVASTATIN 40 MG TAB PO SCH (12:24)
[2018-03-09] VITALS (27 sets, daily range): BP systolic 87–94; BP diastolic 55–62; PULSE 66–79; RESP 16–18; TEMP 97.2–98.7; O2SAT 94–99
--- NOTE | 2018-03-09 00:11 | EKG ---
Date Performed: 03/08/2018 Time Performed: 07:58:30 PTAGE: 57 years EKG: Sinus rhythm . Indeterminate axis ANTEROSEPTAL INFARCT - POSSIBLY ACUTE Lateral ST-T changes may be due to myocardial ischemia Low QRS voltages in limb leads Abnormal ECG PREVIOUS TRACING : 03/07/2018 13.24 Compared to previous tracing, ST elevations now evolving si nce previous DOCTOR: Bo Mart Interpretating Date/Time 03/09/2018 00:10:39
--- NOTE | 2018-03-09 00:44 | EKG ---
Date Performed: 03/07/2018 Time Performed: 13:24:59 PTAGE: 57 years EKG: Sinus rhythm POSSIBLE LEFT ATRIAL ENLARGEMENT LOW QRS VOLTAGE IN PRECORDIAL LEADS ANTEROSEPTAL MYOCARDIAL INFARCT ION ACUTE [place] INTERPRETATION BASED ON A DEFAULT AGE OF 40 YEARS NO PREVIOUS TRACING DOCTOR: Bo Mart Interpretating Date/Time 03/09/2018 00:42:13
[2018-03-09] MEDS: ACETAMINOPHEN 325 MG TAB PO PRN ×2 (04:01→19:58)
[2018-03-09 06:02] LABS: ALBUMIN 3.2 GM/DL (3.4-5.0); AST (GOT) 174 U/L (15-37); BLOOD UREA NITROGEN 13 MG/DL (7-18); CALCIUM 8.6 MG/DL (8.5-10.1); CHLORIDE 106 MEQ/L (98-107); CREATININE 0.82 MG/DL (0.60-1.30); GLOMERULAR FILTRATION RATE 98 ML/MIN (>89); GLUCOSE,RANDOM 135 MG/DL (74-106); SODIUM (NA) 141 MEQ/L (136-145)
[2018-03-09 06:07] LABS: ALKALINE PHOSPHATASE 85 U/L (45-117); ALT (GPT) 61 U/L (12-78); TOTAL BILIRUBIN ADULT 1.1 MG/DL (0.2-1.0); TOTAL PROTEIN 6.7 GM/DL (6.4-8.2)
[2018-03-09] MEDS ORDERED: IOHEXOL 350 MG/ML 50 ML BTL (for Cath Lab) OTHER ONE (06:51)
[2018-03-09] MEDS ORDERED: IOHEXOL 350 MG/ML 100 ML BTL (for Cath Lab) OTHER ONE (06:51)
--- NOTE | 2018-03-09 07:29 | PD.CARD.PN ---
Subjective Subjective Remarks no angina. no complaints Objective Medications Current Medications Medications (Trade) Dose Ordered Sig/Wojciech Route Start Time Stop Time Status Last Admin (NS Flush) 2 ml UNSCH PRN IV FLUSH 03/07/18 15:30 (NS Flush) 2 ml BID IV FLUSH 03/07/18 21:00 03/08/18 20:48 (Tylenol) 325 mg Q4H PRN PO 03/07/18 15:30 03/09/18 04:01 (Percocet 5-325 Mg) 1 tab Q4H PRN PO 03/07/18 15:30 (Aspirin Chew) 81 mg DAILY PO 03/08/18 09:00 03/08/18 08:53 (Brilinta) 90 mg BID PO 03/08/18 09:00 03/08/18 20:43 (Zofran Inj) 4 mg Q4H PRN IV PUSH 03/07/18 15:30 (Lopressor) 12.5 mg BID PO 03/07/18 21:00 03/08/18 08:52 (Prinivil) 2.5 mg DAILY PO 03/08/18 09:00 03/08/18 08:52 (Lipitor) 40 mg DAILY PO 03/08/18 09:00 03/08/18 12:24 (Pill Splitter) 1 ea UNSCH PRN OTHER 03/07/18 15:45 Vital Signs / I&O Vital Signs Date Time Temp Pulse Resp B/P (MAP) Pulse Ox O2 Delivery O2 Flow Rate FiO2 03/09/18 07:01 70 03/09/18 06:00 66 03/09/18 05:00 72 03/09/18 04:00 74 03/09/18 03:00 72 03/09/18 03:00 98.7 74 16 88/62 (71) 94 03/09/18 02:00 76 03/09/18 01:00 71 03/09/18 00:00 74 03/09/18 00:00 98.7 73 16 93/62 (72) 98 03/08/18 23:00 67 03/08/18 22:00 84 03/08/18 21:00 80 03/08/18 20:49 99.1 77 16 87/59 (68) 97 03/08/18 20:00 72 03/08/18 19:00 75 03/08/18 17:00 71 03/08/18 16:00 71 03/08/18 16:00 97.8 79 18 101/70 (80) 97 03/08/18 15:00 70 03/08/18 14:00 70 03/08/18 13:00 70 03/08/18 12:00 74 03/08/18 11:00 74 03/08/18 11:00 97.4 78 20 105/60 (75) 97 03/08/18 10:00 68 03/08/18 09:00 68 03/08/18 08:00 70 03/08/18 07:55 97.4 76 20 98/64 (75) 97 I/O 03/08/18 03/08/18 03/08/18 03/09/18 03/09/18 03/09/18 07:00 15:00 23:00 07:00 15:00 23:00 Intake Total 720 ml 240 ml Output Total 750 ml 420 ml Balance -30 ml -180 ml Intake Oral 720 ml 240 ml Output Urine Total 750 ml 420 ml # Bowel Movements 0 Physical Exam GENERAL: Thin white mail.No acute distress. HEENT: Jugular venous pressure is normal. CHEST: Lungs clear to auscultation bilaterally. Unlabored respiratory effort. CARDIAC: Regular rate and rhythm without S3, S4, or murmur. ABDOMEN: Soft, nontender, no hepatosplenomegaly. Bowel sounds present. EXTREMITIES: No clubbing, cyanosis, or edema. Right groin no hematoma. Laboratory Laboratory Tests Test 03/09/18 03:38 Blood Urea Nitrogen 13 MG/DL Creatinine 0.82 MG/DL Random Glucose 135 MG/DL Total Protein 6.7 GM/DL Albumin 3.2 GM/DL Calcium Level 8.6 MG/DL Alkaline Phosphatase 85 U/L Aspartate Amino Transf (AST/SGOT) 174 U/L Alanine Aminotransferase (ALT/SGPT) 61 U/L Total Bilirubin 1.1 MG/DL Sodium Level 141 MEQ/L Potassium Level 3.8 MEQ/L Chloride Level 106 MEQ/L Carbon Dioxide Level 25.0 MEQ/L Anion Gap 10 MEQ/L Estimat Glomerular Filtration Rate 98 ML/MIN Imaging Last 48 hours Impressions Chest X-Ray 03/07/18 1332 Signed Impressions: Service Date/Time: Wednesday, March 07, 2018 13:36 - CONCLUSION: No acute cardiopulmonary process. Yobany Dietz MD Assessment and Plan Problem List: (1) Stented coronary artery ICD Codes: Z95.5 - Presence of coronary angioplasty implant and graft (2) ST elevation myocardial infarction (STEMI) of anterior wall ICD Codes: I21.09 - ST elevation (STEMI) myocardial infarction involving other coronary artery of anterior wall (3) Hyperglycemia ICD Codes: R73.9 - Hyperglycemia, unspecified (4) Coronary artery disease ICD Codes: I25.10 - Atherosclerotic heart disease of [place] coronary artery without angina pectoris (5) Left ventricular systolic dysfunction ICD Codes: I51.9 - Heart disease, unspecified Assessment and Plan Keep 1 more day, ambulate. Home tomorrow. He had a large ME. Otis Sibley MD Mar 09, 2018 07:29
[2018-03-09] MEDS: ATORVASTATIN 40 MG TAB PO SCH (08:06)
[2018-03-09] MEDS: TICAGRELOR 90 MG TAB PO SCH ×2 (08:07→21:18)
[2018-03-09] MEDS: ASPIRIN 81 MG CHEW TAB PO SCH (08:07)
[2018-03-09] MEDS: LISINOPRIL 5 MG TAB PO SCH (08:07)
[2018-03-09] MEDS: METOPROLOL TARTRATE 25 MG TAB PO SCH ×2 (08:07→21:18)
--- NOTE | 2018-03-09 08:28 | HHI.PR ---
Subjective Remarks This is a pleasant 57 y/o Male who was admitted on 03/07/18, with diagnosis of Acute Anterior ST elevation Myocardial infarction. by workers compensation specialist doctor Toñito and transferred as attending physician to Hospitalist Team, He has tobacco dependence status post PCI and Stent placement, Hyperglycemia, CAD, Left Ventricular systolic dysfunction, as per Cardiology to keep him hospitalized today 03/09/18 and discharge tomorrow after ambulation. Objective Vital Signs Date Time Temp Pulse Resp B/P (MAP) Pulse Ox O2 Delivery O2 Flow Rate FiO2 03/09/18 07:01 70 03/09/18 06:00 66 03/09/18 05:00 72 03/09/18 04:00 74 03/09/18 03:00 72 03/09/18 03:00 98.7 74 16 88/62 (71) 94 03/09/18 02:00 76 03/09/18 01:00 71 03/09/18 00:00 74 03/09/18 00:00 98.7 73 16 93/62 (72) 98 03/08/18 23:00 67 03/08/18 22:00 84 03/08/18 21:00 80 03/08/18 20:49 99.1 77 16 87/59 (68) 97 03/08/18 20:00 72 03/08/18 19:00 75 03/08/18 17:00 71 03/08/18 16:00 71 03/08/18 16:00 97.8 79 18 101/70 (80) 97 03/08/18 15:00 70 03/08/18 14:00 70 03/08/18 13:00 70 03/08/18 12:00 74 03/08/18 11:00 74 03/08/18 11:00 97.4 78 20 105/60 (75) 97 03/08/18 10:00 68 03/08/18 09:00 68 I/O 03/08/18 03/08/18 03/08/18 03/09/18 03/09/18 03/09/18 07:00 15:00 23:00 07:00 15:00 23:00 Intake Total 720 ml 240 ml Output Total 750 ml 420 ml Balance -30 ml -180 ml Intake Oral 720 ml 240 ml Output Urine Total 750 ml 420 ml # Bowel Movements 0 Result Diagram: 03/08/18 0423 03/09/18 0338 Imaging Last Impressions Chest X-Ray 03/07/18 1332 Signed Impressions: Service Date/Time: Wednesday, March 07, 2018 13:36 - CONCLUSION: No acute cardiopulmonary process. Yobany Dietz MD Procedures Cardica Catheterization. Other Results Laboratory Tests Test 03/07/18 13:30 03/08/18 04:23 03/09/18 03:38 Bedside Hemoglobin 13.9 G/DL Bedside Hematocrit 41.0 % Prothrombin Time 10.2 SEC Prothromb Time International Ratio 1.0 RATIO Activated Partial Thromboplast Time 21.1 SEC Bedside Sodium 138 MMOL/L Bedside Potassium 3.4 MMOL/L Bedside Chloride 103 MMOL/L Bedside Blood Urea Nitrogen 16 MG/DL Bedside Creatinine 0.8 MG/DL Bedside Glucose 210 MG/DL Magnesium Level 1.8 MG/DL Total Creatine Kinase 130 U/L Creatine Kinase MB 2.5 NG/ML Troponin I 0.04 NG/ML White Blood Count 14.3 TH/MM3 Red Blood Count 4.09 MIL/MM3 Hemoglobin 12.7 GM/DL Hematocrit 37.2 % Mean Corpuscular Volume 91.0 FL Mean Corpuscular Hemoglobin 31.1 PG Mean Corpuscular Hemoglobin Concent 34.2 % Red Cell Distribution Width 13.2 % Platelet Count 185 TH/MM3 Mean Platelet Volume 9.1 FL Neutrophils (%) (Auto) 82.0 % Lymphocytes (%) (Auto) 11.8 % Monocytes (%) (Auto) 5.3 % Eosinophils (%) (Auto) 0.2 % Basophils (%) (Auto) 0.7 % Neutrophils # (Auto) 11.7 TH/MM3 Lymphocytes # (Auto) 1.7 TH/MM3 Monocytes # (Auto) 0.8 TH/MM3 Eosinophils # (Auto) 0.0 TH/MM3 Basophils # (Auto) 0.1 TH/MM3 CBC Comment DIFF FINAL Differential Comment Triglycerides Level 88 MG/DL Cholesterol Level 225 MG/DL LDL Cholesterol 162 MG/DL HDL Cholesterol 45.7 MG/DL Cholesterol/HDL Ratio 4.92 RATIO Blood Urea Nitrogen 13 MG/DL Creatinine 0.82 MG/DL Random Glucose 135 MG/DL Total Protein 6.7 GM/DL Albumin 3.2 GM/DL Calcium Level 8.6 MG/DL Alkaline Phosphatase 85 U/L Aspartate Amino Transf (AST/SGOT) 174 U/L Alanine Aminotransferase (ALT/SGPT) 61 U/L Total Bilirubin 1.1 MG/DL Sodium Level 141 MEQ/L Potassium Level 3.8 MEQ/L Chloride Level 106 MEQ/L Carbon Dioxide Level 25.0 MEQ/L Anion Gap 10 MEQ/L Estimat Glomerular Filtration Rate 98 ML/MIN Objective Remarks GENERAL: No acute distress. SKIN: Warm and dry. HEAD: Atraumatic. Normocephalic. EYES: Pupils equal and round. No scleral icterus. No injection or drainage. ENT: No nasal bleeding or discharge. Mucous membranes pink and moist. NECK: Trachea midline. No JVD. CARDIOVASCULAR: Regular rate and rhythm. RESPIRATORY: No accessory muscle use. Clear to auscultation. Breath sounds equal bilaterally. GASTROINTESTINAL: Abdomen soft, non-tender, nondistended. Hepatic and splenic margins not palpable. MUSCULOSKELETAL: Extremities without clubbing, cyanosis, or edema. No obvious deformities. NEUROLOGICAL: Awake and alert. No obvious cranial nerve deficits. Medications and IVs Current Medications Medications (Trade) Dose Ordered Sig/Wojciech Route Start Time Stop Time Status Last Admin (NS Flush) 2 ml UNSCH PRN IV FLUSH 03/07/18 15:30 (NS Flush) 2 ml BID IV FLUSH 03/07/18 21:00 03/08/18 20:48 (Tylenol) 325 mg Q4H PRN PO 03/07/18 15:30 03/09/18 04:01 (Percocet 5-325 Mg) 1 tab Q4H PRN PO 03/07/18 15:30 (Aspirin Chew) 81 mg DAILY PO 03/08/18 09:00 03/09/18 08:07 (Brilinta) 90 mg BID PO 03/08/18 09:00 03/09/18 08:07 (Zofran Inj) 4 mg Q4H PRN IV PUSH 03/07/18 15:30 (Lopressor) 12.5 mg BID PO 03/07/18 21:00 03/08/18 08:52 (Prinivil) 2.5 mg DAILY PO 03/08/18 09:00 03/08/18 08:52 (Lipitor) 40 mg DAILY PO 03/08/18 09:00 03/09/18 08:06 (Pill Splitter) 1 ea UNSCH PRN OTHER 03/07/18 15:45 A/P Assessment and Plan STEMI s/p cardiac cath by Dr Sibley cardio on 03/07/18 stenting of the proximal LAD, EF 30%. Continue aspirin and Brilinta Continue atorvastatin. Lipid panel reviewed. Add GARY inhibitor and beta aleksander when BP permits . BP into a lower side at this time. Monitor closely CAD/PCI and stent placement CHF Systolic dysfunction probable Acute Systolic dysfunction will need Echocardiogram for follow up by workers compensation specialist EF 30% Hyperglycemia. Check A1c. DVT prophylaxis with Lovenox. Discharge Planning Once cleared by workers compensation specialist. Sudhakar Blanca MD Mar 09, 2018 08:28
[2018-03-09] MEDS: SODIUM CHLORIDE 0.9% FLUSH 10 ML FLUSH IV FLUSH SCH ×2 (09:00→21:18)
[2018-03-09] MEDS ORDERED: ENOXAPARIN SODIUM 40 MG/0.4 ML SYRINGE SQ SCH (16:00)
[2018-03-09 16:35] LABS: HEMOGLOBIN A1C 7.6 % (4.3-6.0)
--- NOTE | 2018-03-09 17:43 | ECHRPT ---
Indication: CAD CONCLUSIONS Left ventricular systolic function is moderately reduced. Ejection fraction is somewhat difficult to estimate, probably in the range of 35-40%. Moderate size area of apical akinesis. Normal left ventricular size. Wall thickness is normal. Trace mitral valve regurgitation. There is trace tricuspid valve regurgitation. The estimated pulmonary arterial pressure is 29 mmHg. BP: / HR: 64 Rhythm: MEASUREMENTS (Male / Female) Normal Values Technical Quality:Fair 2D ECHO LV Diastolic Diameter PLAX 4.9 cm 4.2 - 5.9 / 3.9 - 5.3 cm LV Systolic Diameter PLAX 3.4 cm IVS Diastolic Thickness 0.9 cm 0.6 - 1.0 / 0.6 - 0.9 cm LVPW Diastolic Thickness 0.9 cm 0.6 - 1.0 / 0.6 - 0.9 cm LV Relative Wall Thickness 0.4 RV Internal Dim ED PLAX 3.0 cm LVOT Diameter 2.1 cm LA Systolic Diameter LX 3.2 cm 3.0 - 4.0 / 2.7 - 3.8 cm LV Ejection Fraction MOD BP 36.7 % >= 55 % LV Cardiac Index MOD BP 1250.4 cm/minm LV Ejection Fraction MOD 4C 36.4 % LV Cardiac Index MOD 4C 1212.5 cm/minm LV Ejection Fraction 4C AL 35.0 % LV Cardiac Index 4C AL 1205.8 cm/minm LV Ejection Fraction MOD 2C 38.5 % LV Cardiac Index MOD 2C 1326.2 cm/minm LV Ejection Fraction 2C AL 37.7 % LV Cardiac Index 2C AL 1313.7 cm/minm M-MODE Aortic Root Diameter MM 3.2 cm LA Systolic Diameter MM 3.2 cm LA Ao Ratio MM 1.0 AV Cusp Separation MM 1.8 cm DOPPLER AV Peak Velocity 123.0 cm/s AV Peak Gradient 6.1 mmHg LVOT Peak Velocity 83.3 cm/s LVOT Peak Gradient 2.8 mmHg AV Area Cont Eq pk 2.3 cm MV Area PHT 4.0 cm Mitral E Point Velocity 54.0 cm/s Mitral A Point Velocity 43.9 cm/s Mitral E to A Ratio 1.2 LV E' Lateral Velocity 10.7 cm/s Mitral E to LV E' Lateral Ratio 5.0 LV E' Septal Velocity 6.0 cm/s Mitral E to LV E' Septal Ratio 8.9 TR Peak Velocity 219.0 cm/s TR Peak Gradient 19.2 mmHg Right Atrial Pressure 10.0 mmHg Pulmonary Artery Systolic Pressu 29.2 mmHg Right Ventricular Systolic Press 29.2 mmHg FINDINGS LEFT VENTRICLE The left ventricular systolic function is moderately reduced. Ejection fraction is somewhat diffic ult to estimate, probably in the range of 35-40%. Moderate size area of apical akinesis. Normal left ventricular size. Wall thickness is normal. RIGHT VENTRICLE Normal right ventricular size and systolic function. LEFT ATRIUM The left atrial size is normal. RIGHT ATRIUM The right atrial size is normal. ATRIAL SEPTUM Normal atrial septal thickness without atrial level shunting by limited color doppler interrogation. AORTA The aortic root and proximal ascending aorta are normal in size on limited imaging. MITRAL VALVE Mild thickening of the mitral valve leaflets. Trace mitral valve regurgitation. AORTIC VALVE Trileaflet aortic valve. No aortic valve stenosis or regurgitation. TRICUSPID VALVE Structurally normal tricuspid valve. There is trace tricuspid valve regurgitation. The estimated pulmonary arterial pressure is 29 mmHg. PULMONARY VALVE No pulmonary valve regurgitation or stenosis. VESSELS The inferior vena cava is normal in size. PERICARDIUM No pericardial effusion. Jesus Dowd MD (Electronically Signed) Final Date:09 March 2018 17:42
[2018-03-09 17:59] LABS: HEMOGLOBIN A1C 7.6 % (4.3-6.0)
[2018-03-10] VITALS (14 sets, daily range): BP systolic 85–100; BP diastolic 54–68; PULSE 63–73; RESP 16; TEMP 98–98.5; O2SAT 98–99
--- NOTE | 2018-03-10 07:39 | HHI.PR ---
Subjective Remarks up and ambulating no comlians of chest discomfort or shortness of breath no groin pain telemetry- SR Objective Vitals Vital Signs Date Time Temp Pulse Resp B/P (MAP) Pulse Ox O2 Delivery O2 Flow Rate FiO2 03/10/18 06:08 65 03/10/18 05:42 70 03/10/18 04:35 98.5 72 87/55 (66) 98 03/10/18 04:35 69 03/10/18 03:00 72 03/10/18 02:17 66 03/10/18 01:15 65 03/10/18 00:29 63 03/10/18 00:01 98.0 68 85/57 (66) 98 03/09/18 23:00 66 03/09/18 22:00 70 03/09/18 21:00 69 03/09/18 20:00 72 03/09/18 19:00 98.2 71 91/60 (70) 99 03/09/18 19:00 71 03/09/18 18:01 72 03/09/18 17:00 74 03/09/18 16:01 68 03/09/18 15:01 97.6 72 18 94/57 (69) 99 03/09/18 15:00 72 03/09/18 14:00 70 03/09/18 13:00 74 03/09/18 12:01 77 03/09/18 11:15 98.1 79 18 87/61 (70) 99 03/09/18 11:00 67 03/09/18 10:00 68 03/09/18 09:00 68 03/09/18 08:01 97.2 72 18 89/55 (66) 99 03/09/18 08:00 78 I/O 03/09/18 03/09/18 03/09/18 03/10/18 03/10/18 03/10/18 07:00 15:00 23:00 07:00 15:00 23:00 Intake Total 240 ml 1080 ml 240 ml Output Total 420 ml Balance -180 ml 1080 ml 240 ml Intake Oral 240 ml 1080 ml 240 ml Output Urine Total 420 ml # Voids 3 2 # Bowel Movements 0 0 Result Diagram: 03/08/18 0423 03/09/18 0338 Imaging Last Impressions Chest X-Ray 03/07/18 6642 Signed Impressions: Service Date/Time: Wednesday, March 07, 2018 13:36 - CONCLUSION: No acute cardiopulmonary process. Yobany Dietz MD Objective Remarks awake and alert, no acute distress anicteric no bruit lungs- clear regular rhythm abdomen soft, nontender right groin- no hematoma LE- no edema, good peripheral pulses Procedures 03/07 Left heart catheterization, left ventriculography, coronary angiography, balloon angioplasty and stenting of the proximal left anterior descending coronary artery. A/P Assessment and Plan 57 years old male ACS- STEMI S/P PCI Ischemic cardiomyopathy - EF 30% s/p cardiac cath by Dr Sibley cardio on 03/07/18 stenting of the proximal LAD, EF 30%. Continue aspirin and Brilinta Continue atorvastatin. GARY inhibitor and beta aleksander Patient tolerating meds- up and ambulating DM type 2, A1C- 7.6 start Metformin 500 mg daily d/w him goals and symptoms of hypoglycemia Dietitian consult- for counselling Diabetes teaching per staff nurse- glucose monitoring and signs and symptoms of hypoglycemia Elevated LFTs- mainly AST- most likely from myocardial injury - trending down - very rare alcohol use Tobacco use- 1 pack every 2 days - counselled extensively DVT prophylaxis with Lovenox. CM consult for DC needs- meds and needs OP f f up with a PCP- needs one check CMP in 1 week Possible DC today once cleared by cardiology Shaista Vitale MD Mar 10, 2018 07:39
[2018-03-10] MEDS ORDERED: ATOR40TA16 PO (07:50)
[2018-03-10] MEDS ORDERED: METO25TA3 PO (07:50)
[2018-03-10] MEDS ORDERED: METF500 PO (07:50)
[2018-03-10] MEDS ORDERED: LISI-519 PO (07:50)
[2018-03-10] MEDS ORDERED: ASPI81 PO (07:50)
[2018-03-10] MEDS ORDERED: BRIL90TA PO (07:50)
[2018-03-10] MEDS ORDERED: BLOO1KIT65 (07:51)
[2018-03-10] MEDS ORDERED: BLOOD GLUCOSE M1 KIT (07:53)
[2018-03-10] MEDS: ASPIRIN 81 MG CHEW TAB PO SCH (08:08)
[2018-03-10] MEDS: TICAGRELOR 90 MG TAB PO SCH (08:08)
[2018-03-10] MEDS: LISINOPRIL 5 MG TAB PO SCH (08:08)
[2018-03-10] MEDS: ATORVASTATIN 40 MG TAB PO SCH (08:08)
[2018-03-10] MEDS: METOPROLOL TARTRATE 25 MG TAB PO SCH (08:08)
[2018-03-10] MEDS: SODIUM CHLORIDE 0.9% FLUSH 10 ML FLUSH IV FLUSH SCH (08:09)
[2018-03-10] MEDS ORDERED: metFORMIN HCL 500 MG TAB PO SCH (09:00)
--- NOTE | 2018-03-10 09:30 | PD.CARD.PN ---
Subjective Subjective Remarks no angina. no complaints Objective Medications Current Medications Medications (Trade) Dose Ordered Sig/Wojciech Route Start Time Stop Time Status Last Admin (NS Flush) 2 ml UNSCH PRN IV FLUSH 03/07/18 15:30 (NS Flush) 2 ml BID IV FLUSH 03/07/18 21:00 03/10/18 08:09 (Tylenol) 325 mg Q4H PRN PO 03/07/18 15:30 03/09/18 19:58 (Percocet 5-325 Mg) 1 tab Q4H PRN PO 03/07/18 15:30 (Aspirin Chew) 81 mg DAILY PO 03/08/18 09:00 03/10/18 08:08 (Brilinta) 90 mg BID PO 03/08/18 09:00 03/10/18 08:08 (Zofran Inj) 4 mg Q4H PRN IV PUSH 03/07/18 15:30 (Lopressor) 12.5 mg BID PO 03/07/18 21:00 03/10/18 08:08 (Prinivil) 2.5 mg DAILY PO 03/08/18 09:00 03/10/18 08:08 (Lipitor) 40 mg DAILY PO 03/08/18 09:00 03/10/18 08:08 (Pill Splitter) 1 ea UNSCH PRN OTHER 03/07/18 15:45 (Lovenox Inj) 40 mg Q24H SQ 03/09/18 16:00 03/09/18 17:02 (Glucophage) 500 mg DAILY PO 03/10/18 09:00 03/10/18 08:45 Vital Signs / I&O Vital Signs Date Time Temp Pulse Resp B/P (MAP) Pulse Ox O2 Delivery O2 Flow Rate FiO2 03/10/18 06:08 65 03/10/18 05:42 70 03/10/18 04:35 98.5 72 87/55 (66) 98 03/10/18 04:35 69 03/10/18 03:00 72 03/10/18 02:17 66 03/10/18 01:15 65 03/10/18 00:29 63 03/10/18 00:01 98.0 68 85/57 (66) 98 03/09/18 23:00 66 03/09/18 22:00 70 03/09/18 21:00 69 03/09/18 20:00 72 03/09/18 19:00 98.2 71 91/60 (70) 99 03/09/18 19:00 71 03/09/18 18:01 72 03/09/18 17:00 74 03/09/18 16:01 68 03/09/18 15:01 97.6 72 18 94/57 (69) 99 03/09/18 15:00 72 03/09/18 14:00 70 03/09/18 13:00 74 03/09/18 12:01 77 03/09/18 11:15 98.1 79 18 87/61 (70) 99 03/09/18 11:00 67 03/09/18 10:00 68 I/O 03/09/18 03/09/18 03/09/18 03/10/18 03/10/18 03/10/18 07:00 15:00 23:00 07:00 15:00 23:00 Intake Total 240 ml 1080 ml 240 ml Output Total 420 ml Balance -180 ml 1080 ml 240 ml Intake Oral 240 ml 1080 ml 240 ml Output Urine Total 420 ml # Voids 3 2 # Bowel Movements 0 0 Physical Exam GENERAL: Thin white mail.No acute distress. HEENT: Jugular venous pressure is normal. CHEST: Lungs clear to auscultation bilaterally. Unlabored respiratory effort. CARDIAC: Regular rate and rhythm without S3, S4, or murmur. ABDOMEN: Soft, nontender, no hepatosplenomegaly. Bowel sounds present. EXTREMITIES: No clubbing, cyanosis, or edema. Right groin no hematoma. Laboratory Laboratory Tests Test 03/07/18 13:30 03/08/18 04:23 03/09/18 03:38 Bedside Hemoglobin 13.9 G/DL Bedside Hematocrit 41.0 % Prothrombin Time 10.2 SEC Prothromb Time International Ratio 1.0 RATIO Activated Partial Thromboplast Time 21.1 SEC Bedside Sodium 138 MMOL/L Bedside Potassium 3.4 MMOL/L Bedside Chloride 103 MMOL/L Bedside Blood Urea Nitrogen 16 MG/DL Bedside Creatinine 0.8 MG/DL Bedside Glucose 210 MG/DL Magnesium Level 1.8 MG/DL Total Creatine Kinase 130 U/L Creatine Kinase MB 2.5 NG/ML Troponin I 0.04 NG/ML White Blood Count 14.3 TH/MM3 Red Blood Count 4.09 MIL/MM3 Hemoglobin 12.7 GM/DL Hematocrit 37.2 % Mean Corpuscular Volume 91.0 FL Mean Corpuscular Hemoglobin 31.1 PG Mean Corpuscular Hemoglobin Concent 34.2 % Red Cell Distribution Width 13.2 % Platelet Count 185 TH/MM3 Mean Platelet Volume 9.1 FL Neutrophils (%) (Auto) 82.0 % Lymphocytes (%) (Auto) 11.8 % Monocytes (%) (Auto) 5.3 % Eosinophils (%) (Auto) 0.2 % Basophils (%) (Auto) 0.7 % Neutrophils # (Auto) 11.7 TH/MM3 Lymphocytes # (Auto) 1.7 TH/MM3 Monocytes # (Auto) 0.8 TH/MM3 Eosinophils # (Auto) 0.0 TH/MM3 Basophils # (Auto) 0.1 TH/MM3 CBC Comment DIFF FINAL Differential Comment Triglycerides Level 88 MG/DL Cholesterol Level 225 MG/DL LDL Cholesterol 162 MG/DL HDL Cholesterol 45.7 MG/DL Cholesterol/HDL Ratio 4.92 RATIO Blood Urea Nitrogen 13 MG/DL Creatinine 0.82 MG/DL Random Glucose 135 MG/DL Total Protein 6.7 GM/DL Albumin 3.2 GM/DL Calcium Level 8.6 MG/DL Alkaline Phosphatase 85 U/L Aspartate Amino Transf (AST/SGOT) 174 U/L Alanine Aminotransferase (ALT/SGPT) 61 U/L Total Bilirubin 1.1 MG/DL Sodium Level 141 MEQ/L Potassium Level 3.8 MEQ/L Chloride Level 106 MEQ/L Carbon Dioxide Level 25.0 MEQ/L Anion Gap 10 MEQ/L Estimat Glomerular Filtration Rate 98 ML/MIN Hemoglobin A1c 7.6 % Assessment and Plan Problem List: (1) Stented coronary artery ICD Codes: Z95.5 - Presence of coronary angioplasty implant and graft (2) ST elevation myocardial infarction (STEMI) of anterior wall ICD Codes: I21.09 - ST elevation (STEMI) myocardial infarction involving other coronary artery of anterior wall (3) Hyperglycemia ICD Codes: R73.9 - Hyperglycemia, unspecified (4) Coronary artery disease ICD Codes: I25.10 - Atherosclerotic heart disease of habematolel coronary artery without angina pectoris (5) Left ventricular systolic dysfunction ICD Codes: I51.9 - Heart disease, unspecified Assessment and Plan OK to DC home on current meds. OV 1-2 weeks. No strenuous activity. No working for now (large NH). Otis Sibley MD Mar 10, 2018 09:30
--- NOTE | 2018-03-10 12:23 | HHI.DS ---
Discharge Summary Admission Date Mar 07, 2018 at 14:12 Discharge Date: Mar 10, 2018 Admitting Diagnosis STEMI (1) ST elevation myocardial infarction (STEMI) of anterior wall ICD Code: I21.09 - ST elevation (STEMI) myocardial infarction involving other coronary artery of anterior wall Diagnosis: Principal Status: Acute (2) DM (diabetes mellitus) ICD Code: E11.9 - DM (diabetes mellitus) Diagnosis: Secondary Procedures 03/07 Left heart catheterization, left ventriculography, coronary angiography, balloon angioplasty and stenting of the proximal left anterior descending coronary artery. Brief History - From Admission This is a 57-year-old smoker from [facility], who does not speak Kinyarw[place], who developed chest pain 1 hour prior to admission. His presenting EKG shows an acute anterior infarction. The patient denies any previous medical history, but last saw a doctor in 2000. He smokes a pack and a half of cigarettes a day. We do not have any history of hypertension or diabetes. He does not know of any family history of coronary artery disease. CBC/BMP: 03/08/18 0423 03/09/18 0338 Significant Findings Laboratory Tests Test 03/07/18 13:30 03/08/18 04:23 03/09/18 03:38 White Blood Count 11.7 TH/MM3 (4.0-11.0) 14.3 TH/MM3 (4.0-11.0) Monocytes (%) (Auto) 8.2 % (0.0-8.0) Lymphocytes # (Auto) 4.9 TH/MM3 (1.0-4.8) Monocytes # (Auto) 1.0 TH/MM3 (0-0.9) Activated Partial Thromboplast Time 21.1 SEC (24.3-30.1) Bedside Potassium 3.4 MMOL/L (3.6-5.0) Bedside Glucose 210 MG/DL (68-110) Red Blood Count 4.09 MIL/MM3 (4.50-5.90) Hemoglobin 12.7 GM/DL (13.0-17.0) Hematocrit 37.2 % (39.0-51.0) Neutrophils (%) (Auto) 82.0 % (16.0-70.0) Neutrophils # (Auto) 11.7 TH/MM3 (1.8-7.7) Random Glucose 166 MG/DL (74-106) 135 MG/DL (74-106) Calcium Level 8.1 MG/DL (8.5-10.1) Aspartate Amino Transf (AST/SGOT) 532 U/L (15-37) 174 U/L (15-37) Alanine Aminotransferase (ALT/SGPT) 88 U/L (12-78) Hemoglobin A1c 7.6 % (4.3-6.0) 7.6 % (4.3-6.0) Cholesterol Level 225 MG/DL (120-200) LDL Cholesterol 162 MG/DL (0-99) Albumin 3.2 GM/DL (3.4-5.0) Total Bilirubin 1.1 MG/DL (0.2-1.0) Imaging Last Impressions Chest X-Ray 03/07/18 1332 Signed Impressions: Service Date/Time: Wednesday, March 07, 2018 13:36 - CONCLUSION: No acute cardiopulmonary process. Yobany Dietz MD PE at Discharge awake and alert, no acute distress anicteric no bruit lungs- clear regular rhythm abdomen soft, nontender right groin- no hematoma LE- no edema, good peripheral pulses Pt update on day of discharge no chest pain or shortness of breath d/w him diabetes education, counselling smoking cessation Hospital Course 57 years old male ACS- STEMI S/P PCI Ischemic cardiomyopathy - EF 30% s/p cardiac cath by Dr Sibley cardio on 03/07/18 stenting of the proximal LAD, EF 30%. Continue aspirin and Brilinta Continue atorvastatin. GARY inhibitor and beta aleksander Patient tolerating meds- up and ambulating DM type 2, A1C- 7.6 start Metformin 500 mg daily d/w him goals and symptoms of hypoglycemia Dietitian consult- for counselling Diabetes teaching per staff nurse- glucose monitoring and signs and symptoms of hypoglycemia Elevated LFTs- mainly AST- most likely from myocardial injury - trending down - very rare alcohol use Tobacco use- 1 pack every 2 days - counselled extensively - motivated with smoking cessation DVT prophylaxis with Lovenox. CM consult for DC needs- meds and needs OP f f up with a PCP- needs one check CMP in 1 week Possible DC today Pt Condition on Discharge: Stable Discharge Disposition: Discharge Home Discharge Time: > 30 minutes Discharge Instructions DIET: Follow Instructions for: Heart Healthy Diet, Diabetic Diet Speech Therapy-Diet Recommends: Regular Activities you can perform: Weight Bearing as Bobby Follow up Referrals: Cardiology - 1 Week with Otis Sibley MD PCP Follow-up - 1 Week with OPreferra/c/o CM New Orders: COMP MET PROF (CMP) - 1 Week New Medications: Blood Glucose Monitoring W/Device (Blood Glucose Monitoring W/Device) 1 Kit Kit KIT .XX DIRECTED for Blood Sugar Management, #1 0 Refills Aspirin (Tgt Aspirin) 81 Mg Chw 81 MG PO DAILY for CAD for 30 Days, EA 12 Refills Atorvastatin (Atorvastatin) 40 Mg Tab 40 MG PO DAILY for CAD for 30 Days, #30 TAB 3 Refills Lisinopril (Lisinopril) 5 Mg Tab 2.5 MG PO DAILY for CAD for 30 Days, #15 TAB 3 Refills Metformin (Glucophage) 500 Mg Tab 500 MG PO DAILY for DM for 30 Days, #30 TAB 3 Refills Metoprolol Tartrate (Metoprolol Tartrate) 25 Mg Tab 12.5 MG PO BID for CAD for 30 Days, TAB 3 Refills Ticagrelor (Brilinta) 90 Mg Tab 90 MG PO BID for ACS/stent for 30 Days, #60 TAB 3 Refills Shaista Vitale MD Mar 10, 2018 12:23
== END 2018-03-10 14:45 | disposition home or self-care (01) | DRG 247 ==
LOC: NEPC 13:25 → NEDA 14:12 → HCPC 15:46
PROVIDERS: ADMIT Internal Medicine; ATTEND Internal Medicine
PROC: 027034Z Dilation of Coronary Artery, One Artery with Drug-eluting Intraluminal Device, Percutaneous Approach (ICD-10-PCS; principal; 2018-03-07)
PROC: 4A023N7 Measurement of Cardiac Sampling and Pressure, Left Heart, Percutaneous Approach (ICD-10-PCS; 2018-03-07)
PROC: B2111ZZ Fluoroscopy of Multiple Coronary Arteries using Low Osmolar Contrast (ICD-10-PCS; 2018-03-07)
PROC: B2151ZZ Fluoroscopy of Left Heart using Low Osmolar Contrast (ICD-10-PCS; 2018-03-07)
DX: I21.02 ST elevation (STEMI) myocardial infarction involving left anterior descending coronary artery (principal); I50.20 Unspecified systolic (congestive) heart failure; I25.10 Atherosclerotic heart disease of native coronary artery without angina pectoris; I25.5 Ischemic cardiomyopathy; E11.65 Type 2 diabetes mellitus with hyperglycemia; R79.89 Other specified abnormal findings of blood chemistry; F17.200 Nicotine dependence, unspecified, uncomplicated
CPT/HCPCS: 71045; 80048; 80053; 80061; 82550; 82552; 82948; 83036; 83735; 84484; 85025; 85610; 85730; 92941; 93005; 93306; 93458; 96374; 99152; 99153; C1725; C1760; C1769; C1874; C1887; C1893; G0269; J1644; J1650; J2250; J2270; J3246; Q9967